=== PATIENT | male | born 1965 | race Caucasian/White ===

== ENCOUNTER → 2017-10-12 | Outpatient (CLI) | payer BC ==
--- NOTE | 2017-10-12 17:18 | RADIOLOGY IMAGING REPORT ---
FACILITY: [facility] PATIENT NAME: Ha Will : 1965 MR: [id number] V: [id number] EXAM DATE: ORDERING PHYSICIAN: ANIKA DURAN TECHNOLOGIST: Location: [facility] Patient: Ha Will : 1965 Visit/Account:[id number] Date of Sevice: 10/12/2017 Exam type: CHEST PA AND LAT History: Fluid in June, loss 40 pounds, cough, shortness of breath Comparison: None. Findings: There is hyperexpansion of the lung nathan. There is no evidence of focal infiltrates, pleural effus ions or pulmonary edema. The cardiac silhouette is normal in size. There are sternotomy sutures and a prosthetic cardiac valve IMPRESSION: 1. Hyperexpansion the lung nathan although no evidence of acute pulmonary consolidation Report Dictated By: Aaliyah Knight MD at 10/12/2017 5:13 PM Report E-Signed By: Aaliyah Knight MD at 10/12/2017 5:14 PM WSN:[email or web address]
== END ==
LOC: RAD 12:21
PROVIDERS: ATTEND Family Medicine
DX: R91.8 Other nonspecific abnormal finding of lung field (principal)
CPT/HCPCS: 71046